=== PATIENT | male | born 1940 | race Caucasian/White ===

== ENCOUNTER 2018-03-18 12:32 | Inpatient (IN) | payer OTHER ==
[~2018-03-18] VITALS: Ht 175.3 cm; Wt 119.0 kg
[~2018-03-18 12:32] MED LIST: ALEVE220 M2 PO; ALLOPURINOL300 MG PO; ATORVASTATIN CA20 MG PO; CELECOXIB200 MG PO; DULOXETINE HCL60 MG PO; FARXIGA10 MG PO; METFORMIN HCL500 MG PO; METOPROLOL TART50 MG PO; NORVASC5 MG PO; OSENI 12.5-151 EACH PO; PANTOPRAZOLE SO40 MG PO; TERAZOSIN HCL10 MG PO; TIZANIDINE HCL2 MG PO; TRAMADOL HCL50 MG PO; TYLENOL EXTRA500 MG PO; ZESTORETIC 20-1 EAC2 PO
[2018-03-18 13:14] LABS: BASOPHIL (%) 0.3 % (0-1); BASOPHIL COUNT 0.1 K/uL (0-0.1); EOSINOPHIL (%) 1.7 % (0-5); EOSINOPHIL COUNT 0.3 K/uL (0-0.3); HEMATOCRIT 30.5 % (38.0-50.0); HEMOGLOBIN 10.5 G/DL (12.5-16.6); IMMATURE GRANULOCYTE (%) 1.4 % (0.0-0.7); LYMPHOCYTE COUNT 0.9 K/uL (1.0-2.8); MCH 32.3 PG (29.0-34.0); MCHC 34.4 G/DL (30.0-36.0); MCV 93.8 FL (86-99); MONOCYTE (%) 5.5 % (3-12); NEUTROPHIL (%) 86.1 % (45-76); NEUTROPHIL COUNT 14.8 K/uL (1.8-6.4); PLATELET COUNT 382 K/uL (156-360); RBC DIS.WIDTH-CV 14.2 % (11.8-14.6); RED BLOOD COUNT 3.25 M/uL (4.00-5.50); WHITE BLOOD COUNT 17.3 K/uL (4.1-10.2)
[2018-03-18 13:22] LABS: CHLORIDE 96 mEq/L (99-109); POTASSIUM 4.7 mEq/L (3.7-5.4); SODIUM 131 mEq/L (136-147)
[2018-03-18 13:23] LABS: GLUCOSE 117 mg/dL (70-99)
[2018-03-18 13:27] LABS: CREATININE 2.3 mg/dL (0.6-1.3); GFR ESTIMATE (CALCULATED) 30 mL/min/ (58.99-99999)
[2018-03-18 13:28] LABS: UREA NITROGEN (BUN) 77 mg/dL (9-23)
[2018-03-18] MEDS ORDERED: ADVIL200 MG PO (15:21)
[2018-03-18] MEDS ORDERED: PROTONIX40 MG PO (15:22)
[2018-03-18] MEDS ORDERED: ASPIR 8181 M1 PO (15:22)
[2018-03-18] MEDS ORDERED: VOLTAREN 1% GE100 GM TP (15:22)
[2018-03-18] MEDS ORDERED: FLOMAX0.4 MG PO (15:23)
[2018-03-18] MEDS ORDERED: BENADRYL25 MG PO (15:23)
[2018-03-18] MEDS ORDERED: SILVADENE,SSD,T50 GM TP (15:23)
[2018-03-18] MEDS ORDERED: TRADJENTA5 MG PO (15:24)
[2018-03-18] MEDS ORDERED: TOUJEO SOL300 UNIT/1 SC (15:24)
[2018-03-18] MEDS ORDERED: ACTOS30 MG PO (15:24)
[2018-03-18] MEDS ORDERED: ODOR FREE GARL1 EAC1 PO (15:24)
[2018-03-18] MEDS ORDERED: APPLE CIDER VI500 MG PO (15:24)
[2018-03-18] MEDS ORDERED: LASIX40 MG PO (15:24)
[2018-03-18 18:41] VITALS: BP 108/49
[2018-03-18 20:12] VITALS: BP 126/53
[2018-03-18 23:52] VITALS: BP 128/63
[2018-03-19 05:11] VITALS: BP 127/58
[2018-03-19 06:19] LABS: BASOPHIL (%) 0.3 % (0-1); BASOPHIL COUNT 0.1 K/uL (0-0.1); EOSINOPHIL (%) 0.7 % (0-5); EOSINOPHIL COUNT 0.1 K/uL (0-0.3); HEMATOCRIT 30.5 % (38.0-50.0); IMMATURE GRANULOCYTE (%) 1.3 % (0.0-0.7); LYMPHOCYTE (%) 4.4 % (15-42); LYMPHOCYTE COUNT 0.7 K/uL (1.0-2.8); MCH 31.2 PG (29.0-34.0); MCHC 32.8 G/DL (30.0-36.0); MONOCYTE (%) 5.3 % (3-12); MONOCYTE COUNT 0.9 K/uL (0-0.8); NEUTROPHIL COUNT 14.7 K/uL (1.8-6.4); PLATELET COUNT 400 K/uL (156-360); RBC DIS.WIDTH-CV 14.1 % (11.8-14.6); RBC DIS.WIDTH-SD 49.5 % (39-53); RED BLOOD COUNT 3.21 M/uL (4.00-5.50); WHITE BLOOD COUNT 16.7 K/uL (4.1-10.2)
[2018-03-19 06:52] LABS: ALBUMIN 2.4 G/DL (3.2-4.8); ALKALINE PHOSPHATASE 73 IU/L (3-129); ALT (GPT) 14 IU/L (3-49); AST (GOT) 15 IU/L (2-34); CHLORIDE 97 MEQ/L (99-109); CREATININE 2.1 MG/DL (0.6-1.3); GFR ESTIMATE (CALCULATED) 33 mL/min/ (58.99-99999); HDL CHOLESTEROL 19 MG/DL (Desirable>=40); LDL CHOLESTEROL 40 mg/dL (Desirable<100); NON-HDL CHOLESTEROL 60 mg/dL (Desirable<160); POTASSIUM 4.4 MEQ/L (3.7-5.4); SODIUM 133 MEQ/L (136-147); TOTAL BILIRUBIN 0.4 MG/DL (0.0-1.0); TOTAL CHOLESTEROL 79 mg/dL (Desirable<200); TOTAL PROTEIN 5.6 G/DL (6.4-8.3); TRIGLYCERIDES 100 MG/DL (Normal: <150); UREA NITROGEN (BUN) 68 mg/dL (9-23)
[2018-03-19 06:56] LABS: GLUCOSE 219 mg/dL (70-99)
[2018-03-19 07:04] LABS: VANCOMYCIN, TROUGH 8.9 MCG/ML (10-20)
[2018-03-19 07:54] VITALS: BP 113/65
[2018-03-19 23:07] VITALS: BP 118/60
[2018-03-20 07:08] LABS: BASOPHIL (%) 0.3 % (0-1); BASOPHIL COUNT 0.1 K/uL (0-0.1); EOSINOPHIL (%) 1.5 % (0-5); EOSINOPHIL COUNT 0.3 K/uL (0-0.3); HEMATOCRIT 31.5 % (38.0-50.0); HEMOGLOBIN 10.3 G/DL (12.5-16.6); IMMATURE GRANULOCYTE (%) 0.9 % (0.0-0.7); LYMPHOCYTE (%) 7.4 % (15-42); LYMPHOCYTE COUNT 1.3 K/uL (1.0-2.8); MCH 31.5 PG (29.0-34.0); MCHC 32.7 G/DL (30.0-36.0); MCV 96.3 FL (86-99); MONOCYTE (%) 7.8 % (3-12); MONOCYTE COUNT 1.4 K/uL (0-0.8); NEUTROPHIL (%) 82.1 % (45-76); NEUTROPHIL COUNT 14.6 K/uL (1.8-6.4); PLATELET COUNT 435 K/uL (156-360); RBC DIS.WIDTH-CV 14.3 % (11.8-14.6); RBC DIS.WIDTH-SD 50.4 % (39-53); RED BLOOD COUNT 3.27 M/uL (4.00-5.50); WHITE BLOOD COUNT 17.8 K/uL (4.1-10.2)
[2018-03-20 07:38] LABS: CHLORIDE 100 MEQ/L (99-109); GFR ESTIMATE (CALCULATED) 35 mL/min/ (58.99-99999); POTASSIUM 4.7 MEQ/L (3.7-5.4); SODIUM 135 MEQ/L (136-147); UREA NITROGEN (BUN) 59 mg/dL (9-23)
[2018-03-20 07:39] LABS: GLUCOSE 70 mg/dL (70-99)
[2018-03-20 08:47] VITALS: BP 113/51
[2018-03-20 23:54] VITALS: BP 144/67
[2018-03-21 07:05] LABS: BASOPHIL (%) 0.4 % (0-1); BASOPHIL COUNT 0.1 K/uL (0-0.1); EOSINOPHIL (%) 1.9 % (0-5); EOSINOPHIL COUNT 0.3 K/uL (0-0.3); HEMATOCRIT 29.2 % (38.0-50.0); HEMOGLOBIN 9.6 G/DL (12.5-16.6); IMMATURE GRANULOCYTE (%) 0.8 % (0.0-0.7); LYMPHOCYTE (%) 7.1 % (15-42); LYMPHOCYTE COUNT 1.2 K/uL (1.0-2.8); MCH 31.5 PG (29.0-34.0); MCHC 32.9 G/DL (30.0-36.0); MCV 95.7 FL (86-99); MONOCYTE (%) 7.9 % (3-12); MONOCYTE COUNT 1.3 K/uL (0-0.8); NEUTROPHIL (%) 81.9 % (45-76); NEUTROPHIL COUNT 13.7 K/uL (1.8-6.4); PLATELET COUNT 405 K/uL (156-360); RBC DIS.WIDTH-CV 14.2 % (11.8-14.6); RBC DIS.WIDTH-SD 50.3 % (39-53); RED BLOOD COUNT 3.05 M/uL (4.00-5.50); WHITE BLOOD COUNT 16.7 K/uL (4.1-10.2)
[2018-03-21 07:07] LABS: INTER. NORMALIZED RATIO 1.1
[2018-03-21 07:10] LABS: PTT 27.5 SEC (25-37)
[2018-03-21 07:18] VITALS: BP 134/62
[2018-03-21 07:34] LABS: CHLORIDE 102 MEQ/L (99-109); CREATININE 1.7 MG/DL (0.6-1.3); GFR ESTIMATE (CALCULATED) 42 mL/min/ (58.99-99999); POTASSIUM 4.6 MEQ/L (3.7-5.4); SODIUM 136 MEQ/L (136-147); UREA NITROGEN (BUN) 55 mg/dL (9-23)
[2018-03-21 07:36] LABS: GLUCOSE 111 mg/dL (70-99)
[2018-03-21 09:27] LABS: HEMOGLOBIN A1c (GLYCOHEMOGLOB) 9.9 % (Below 5.7)
[2018-03-21 17:41] VITALS: BP 138/76
[2018-03-21 23:58] VITALS: BP 118/72
[2018-03-22 06:12] LABS: CHLORIDE 101 MEQ/L (99-109); CREATININE 1.7 MG/DL (0.6-1.3); GFR ESTIMATE (CALCULATED) 42 mL/min/ (58.99-99999); GLUCOSE 154 mg/dL (70-99); POTASSIUM 4.9 MEQ/L (3.7-5.4); SODIUM 134 MEQ/L (136-147); UREA NITROGEN (BUN) 43 mg/dL (9-23)
[2018-03-22 08:01] VITALS: BP 122/58
[2018-03-22 15:51] VITALS: BP 143/59
[2018-03-22 22:36] VITALS: BP 122/78
[2018-03-22 23:39] VITALS: BP 117/56
[2018-03-23 04:25] VITALS: BP 122/57
[2018-03-23 06:46] LABS: CHLORIDE 102 MEQ/L (99-109); CREATININE 2.1 MG/DL (0.6-1.3); GFR ESTIMATE (CALCULATED) 33 mL/min/ (58.99-99999); GLUCOSE 192 mg/dL (70-99); SODIUM 134 MEQ/L (136-147); UREA NITROGEN (BUN) 49 mg/dL (9-23)
[2018-03-23 08:25] VITALS: BP 128/68
[2018-03-23 11:46] VITALS: BP 134/76
[2018-03-23 15:59] VITALS: BP 122/70
[2018-03-23 19:28] VITALS: BP 127/60
[2018-03-24 00:05] VITALS: BP 127/58
[2018-03-24 05:37] LABS: BASOPHIL (%) 0.7 % (0-1); BASOPHIL COUNT 0.1 K/uL (0-0.1); EOSINOPHIL (%) 6.8 % (0-5); EOSINOPHIL COUNT 0.7 K/uL (0-0.3); HEMATOCRIT 28.6 % (38.0-50.0); HEMOGLOBIN 9.1 G/DL (12.5-16.6); IMMATURE GRANULOCYTE (%) 0.9 % (0.0-0.7); LYMPHOCYTE (%) 13.3 % (15-42); LYMPHOCYTE COUNT 1.4 K/uL (1.0-2.8); MCH 31.2 PG (29.0-34.0); MCHC 31.8 G/DL (30.0-36.0); MCV 97.9 FL (86-99); MONOCYTE (%) 7.1 % (3-12); MONOCYTE COUNT 0.8 K/uL (0-0.8); NEUTROPHIL (%) 71.2 % (45-76); NEUTROPHIL COUNT 7.7 K/uL (1.8-6.4); PLATELET COUNT 353 K/uL (156-360); RBC DIS.WIDTH-SD 50.5 % (39-53); RED BLOOD COUNT 2.92 M/uL (4.00-5.50); WHITE BLOOD COUNT 10.8 K/uL (4.1-10.2)
[2018-03-24 06:05] LABS: CHLORIDE 101 MEQ/L (99-109); GFR ESTIMATE (CALCULATED) 35 mL/min/ (58.99-99999); GLUCOSE 153 mg/dL (70-99); SODIUM 133 MEQ/L (136-147); UREA NITROGEN (BUN) 51 mg/dL (9-23)
[2018-03-24 08:00] VITALS: BP 149/73
[2018-03-24 17:00] VITALS: BP 140/78
[2018-03-25 00:49] VITALS: BP 127/58
[2018-03-25 04:49] VITALS: BP 150/72
[2018-03-25 07:01] LABS: CHLORIDE 99 MEQ/L (99-109); CREATININE 1.7 MG/DL (0.6-1.3); GFR ESTIMATE (CALCULATED) 42 mL/min/ (58.99-99999); GLUCOSE 223 mg/dL (70-99); SODIUM 132 MEQ/L (136-147); UREA NITROGEN (BUN) 49 mg/dL (9-23)
[2018-03-25 07:42] VITALS: BP 120/60
[2018-03-25 16:24] VITALS: BP 128/70
[2018-03-25 23:28] VITALS: BP 121/56
[2018-03-26 07:32] VITALS: BP 164/83
[2018-03-26 08:10] VITALS: BP 100/54
[2018-03-26 16:13] VITALS: BP 94/53
[2018-03-26 23:45] VITALS: BP 108/56
[2018-03-27 06:58] LABS: CREATININE 1.6 MG/DL (0.6-1.3)
[2018-03-27 09:24] VITALS: BP 104/50
[2018-03-27 15:35] VITALS: BP 110/64
[2018-03-28 02:11] VITALS: BP 112/60
[2018-03-28 07:56] VITALS: BP 108/62
[2018-03-28 15:49] VITALS: BP 106/64
[2018-03-28 23:57] VITALS: BP 110/66
[2018-03-29 08:27] VITALS: BP 150/70
[2018-03-29 12:30] VITALS: BP 150/60
[2018-03-29 15:49] VITALS: BP 148/67
[2018-03-29 23:04] VITALS: BP 128/69
[2018-03-30 08:11] VITALS: BP 142/70
[2018-03-30 08:57] LABS: HEMATOCRIT 23.7 % (38.0-50.0); HEMOGLOBIN 7.5 G/DL (12.5-16.6); MCH 30.6 PG (29.0-34.0); MCHC 31.6 G/DL (30.0-36.0); MCV 96.7 FL (86-99); PLATELET COUNT 297 K/uL (156-360); RBC DIS.WIDTH-CV 14.8 % (11.8-14.6); RBC DIS.WIDTH-SD 51.6 % (39-53); RED BLOOD COUNT 2.45 M/uL (4.00-5.50); WHITE BLOOD COUNT 12.1 K/uL (4.1-10.2)
[2018-03-30 09:13] LABS: CHLORIDE 99 MEQ/L (99-109); POTASSIUM 4.8 MEQ/L (3.7-5.4); SODIUM 135 MEQ/L (136-147)
[2018-03-30 09:20] LABS: GFR ESTIMATE (CALCULATED) 33 mL/min/ (58.99-99999); GLUCOSE 200 mg/dL (70-99); UREA NITROGEN (BUN) 56 mg/dL (9-23)
[2018-03-30 09:21] LABS: CREATININE 2.1 MG/DL (0.6-1.3)
[2018-03-30 16:55] VITALS: BP 138/60
[2018-03-30 23:15] VITALS: BP 128/80
[2018-03-31] VITALS (12 sets, daily range): BP systolic 86–130; BP diastolic 50–76
[2018-03-31 06:46] LABS: BASOPHIL (%) 0.5 % (0-1); BASOPHIL COUNT 0.1 K/uL (0-0.1); EOSINOPHIL (%) 0.9 % (0-5); EOSINOPHIL COUNT 0.1 K/uL (0-0.3); HEMATOCRIT 23.5 % (38.0-50.0); HEMOGLOBIN 7.4 G/DL (12.5-16.6); LYMPHOCYTE (%) 9.5 % (15-42); LYMPHOCYTE COUNT 1.3 K/uL (1.0-2.8); MCH 30.7 PG (29.0-34.0); MCHC 31.5 G/DL (30.0-36.0); MCV 97.5 FL (86-99); MONOCYTE (%) 6.6 % (3-12); MONOCYTE COUNT 0.9 K/uL (0-0.8); NEUTROPHIL (%) 81.5 % (45-76); NEUTROPHIL COUNT 10.9 K/uL (1.8-6.4); PLATELET COUNT 328 K/uL (156-360); RBC DIS.WIDTH-CV 15.2 % (11.8-14.6); RBC DIS.WIDTH-SD 52.1 % (39-53); RED BLOOD COUNT 2.41 M/uL (4.00-5.50); WHITE BLOOD COUNT 13.4 K/uL (4.1-10.2)
[2018-03-31 07:07] LABS: CHLORIDE 98 MEQ/L (99-109); CREATININE 2.3 MG/DL (0.6-1.3); GFR ESTIMATE (CALCULATED) 30 mL/min/ (58.99-99999); GLUCOSE 164 mg/dL (70-99); POTASSIUM 4.5 MEQ/L (3.7-5.4); SODIUM 132 MEQ/L (136-147); UREA NITROGEN (BUN) 59 mg/dL (9-23)
[2018-04-01 07:05] LABS: BASOPHIL (%) 0.5 % (0-1); BASOPHIL COUNT 0.1 K/uL (0-0.1); EOSINOPHIL (%) 1.1 % (0-5); EOSINOPHIL COUNT 0.2 K/uL (0-0.3); HEMATOCRIT 26.7 % (38.0-50.0); HEMOGLOBIN 8.7 G/DL (12.5-16.6); IMMATURE GRANULOCYTE (%) 0.7 % (0.0-0.7); LYMPHOCYTE (%) 9.4 % (15-42); LYMPHOCYTE COUNT 1.3 K/uL (1.0-2.8); MCH 31.2 PG (29.0-34.0); MCHC 32.6 G/DL (30.0-36.0); MCV 95.7 FL (86-99); MONOCYTE (%) 8.7 % (3-12); MONOCYTE COUNT 1.2 K/uL (0-0.8); NEUTROPHIL (%) 79.6 % (45-76); NEUTROPHIL COUNT 10.8 K/uL (1.8-6.4); NRBC (%) 0.1 /100 WBC (0-0); PLATELET COUNT 311 K/uL (156-360); RBC DIS.WIDTH-CV 16.5 % (11.8-14.6); RBC DIS.WIDTH-SD 56.4 % (39-53); RED BLOOD COUNT 2.79 M/uL (4.00-5.50); WHITE BLOOD COUNT 13.6 K/uL (4.1-10.2)
[2018-04-01 07:27] LABS: CHLORIDE 96 MEQ/L (99-109); CREATININE 2.6 MG/DL (0.6-1.3); GFR ESTIMATE (CALCULATED) 26 mL/min/ (58.99-99999); GLUCOSE 154 mg/dL (70-99); POTASSIUM 4.8 MEQ/L (3.7-5.4); SODIUM 131 MEQ/L (136-147); UREA NITROGEN (BUN) 64 mg/dL (9-23)
[2018-04-01 07:48] VITALS: BP 136/68
[2018-04-01 16:19] VITALS: BP 140/66
[2018-04-02 00:38] VITALS: BP 134/78
[2018-04-02 04:55] VITALS: BP 125/84
[2018-04-02 06:53] LABS: BASOPHIL (%) 0.7 % (0-1); BASOPHIL COUNT 0.1 K/uL (0-0.1); EOSINOPHIL (%) 1.9 % (0-5); EOSINOPHIL COUNT 0.2 K/uL (0-0.3); HEMATOCRIT 28.3 % (38.0-50.0); HEMOGLOBIN 9.2 G/DL (12.5-16.6); IMMATURE GRANULOCYTE (%) 0.7 % (0.0-0.7); LYMPHOCYTE (%) 10.6 % (15-42); LYMPHOCYTE COUNT 1.3 K/uL (1.0-2.8); MCH 31.3 PG (29.0-34.0); MCHC 32.5 G/DL (30.0-36.0); MCV 96.3 FL (86-99); MONOCYTE (%) 6.2 % (3-12); MONOCYTE COUNT 0.8 K/uL (0-0.8); NEUTROPHIL (%) 79.9 % (45-76); NEUTROPHIL COUNT 9.8 K/uL (1.8-6.4); PLATELET COUNT 346 K/uL (156-360); RBC DIS.WIDTH-CV 16.9 % (11.8-14.6); RBC DIS.WIDTH-SD 57.2 % (39-53); RED BLOOD COUNT 2.94 M/uL (4.00-5.50); WHITE BLOOD COUNT 12.2 K/uL (4.1-10.2)
[2018-04-02 07:29] LABS: CHLORIDE 95 MEQ/L (99-109); GFR ESTIMATE (CALCULATED) 21 mL/min/ (58.99-99999); GLUCOSE 139 mg/dL (70-99); SODIUM 130 MEQ/L (136-147); UREA NITROGEN (BUN) 69 mg/dL (9-23)
[2018-04-02 07:39] LABS: CREATININE 3.1 MG/DL (0.6-1.3)
[2018-04-02 08:50] VITALS: BP 120/56
[2018-04-02 23:27] VITALS: BP 138/74
[2018-04-03 07:47] LABS: BASOPHIL (%) 0.6 % (0-1); BASOPHIL COUNT 0.1 K/uL (0-0.1); EOSINOPHIL (%) 1.1 % (0-5); EOSINOPHIL COUNT 0.1 K/uL (0-0.3); HEMATOCRIT 29.9 % (38.0-50.0); HEMOGLOBIN 9.5 G/DL (12.5-16.6); IMMATURE GRANULOCYTE (%) 0.9 % (0.0-0.7); LYMPHOCYTE (%) 7.8 % (15-42); MCH 30.9 PG (29.0-34.0); MCHC 31.8 G/DL (30.0-36.0); MCV 97.4 FL (86-99); MONOCYTE (%) 6.5 % (3-12); MONOCYTE COUNT 0.8 K/uL (0-0.8); NEUTROPHIL (%) 83.1 % (45-76); NEUTROPHIL COUNT 10.4 K/uL (1.8-6.4); PLATELET COUNT 396 K/uL (156-360); RBC DIS.WIDTH-SD 57.8 % (39-53); RED BLOOD COUNT 3.07 M/uL (4.00-5.50); WHITE BLOOD COUNT 12.6 K/uL (4.1-10.2)
[2018-04-03 08:05] LABS: CHLORIDE 94 MEQ/L (99-109); CREATININE 3.5 MG/DL (0.6-1.3); GFR ESTIMATE (CALCULATED) 18 mL/min/ (58.99-99999); POTASSIUM 5.1 MEQ/L (3.7-5.4); SODIUM 128 MEQ/L (136-147); UREA NITROGEN (BUN) 69 mg/dL (9-23)
[2018-04-03 08:16] LABS: GLUCOSE 97 mg/dL (70-99)
[2018-04-03 09:46] VITALS: BP 121/69
[2018-04-03 16:08] VITALS: BP 121/83
[2018-04-04 00:29] VITALS: BP 160/78
[2018-04-04 06:01] LABS: BASOPHIL (%) 0.3 % (0-1); EOSINOPHIL (%) 0.1 % (0-5); HEMATOCRIT 27.6 % (38.0-50.0); HEMOGLOBIN 8.7 G/DL (12.5-16.6); IMMATURE GRANULOCYTE (%) 0.8 % (0.0-0.7); LYMPHOCYTE COUNT 0.9 K/uL (1.0-2.8); MCH 30.6 PG (29.0-34.0); MCHC 31.5 G/DL (30.0-36.0); MCV 97.2 FL (86-99); MONOCYTE (%) 4.7 % (3-12); MONOCYTE COUNT 0.5 K/uL (0-0.8); NEUTROPHIL (%) 86.1 % (45-76); PLATELET COUNT 382 K/uL (156-360); RBC DIS.WIDTH-SD 57.6 % (39-53); RED BLOOD COUNT 2.84 M/uL (4.00-5.50); WHITE BLOOD COUNT 11.5 K/uL (4.1-10.2)
[2018-04-04 07:14] LABS: CHLORIDE 94 MEQ/L (99-109); CREATININE 3.7 MG/DL (0.6-1.3); GFR ESTIMATE (CALCULATED) 17 mL/min/ (58.99-99999); GLUCOSE 78 mg/dL (70-99); POTASSIUM 5.5 MEQ/L (3.7-5.4); SODIUM 126 MEQ/L (136-147); UREA NITROGEN (BUN) 75 mg/dL (9-23)
[2018-04-04 08:06] VITALS: BP 142/72
[2018-04-04 23:24] VITALS: BP 140/70
[2018-04-05 05:27] LABS: BASOPHIL (%) 0.2 % (0-1); EOSINOPHIL (%) 0 % (0-5); HEMATOCRIT 29.4 % (38.0-50.0); HEMOGLOBIN 9.5 G/DL (12.5-16.6); IMMATURE GRANULOCYTE (%) 0.9 % (0.0-0.7); LYMPHOCYTE (%) 5.7 % (15-42); LYMPHOCYTE COUNT 0.7 K/uL (1.0-2.8); MCH 30.9 PG (29.0-34.0); MCHC 32.3 G/DL (30.0-36.0); MCV 95.8 FL (86-99); MONOCYTE COUNT 0.5 K/uL (0-0.8); NEUTROPHIL (%) 89.2 % (45-76); NEUTROPHIL COUNT 10.9 K/uL (1.8-6.4); NRBC (%) 0.2 /100 WBC (0-0); PLATELET COUNT 375 K/uL (156-360); RBC DIS.WIDTH-CV 17.1 % (11.8-14.6); RBC DIS.WIDTH-SD 58.1 % (39-53); RED BLOOD COUNT 3.07 M/uL (4.00-5.50); WHITE BLOOD COUNT 12.2 K/uL (4.1-10.2)
[2018-04-05 05:45] LABS: CHLORIDE 92 MEQ/L (99-109); POTASSIUM 5.6 MEQ/L (3.7-5.4); SODIUM 124 MEQ/L (136-147)
[2018-04-05 05:54] LABS: CREATININE 3.6 MG/DL (0.6-1.3); GFR ESTIMATE (CALCULATED) 18 mL/min/ (58.99-99999); GLUCOSE 108 mg/dL (70-99); UREA NITROGEN (BUN) 84 mg/dL (9-23)
[2018-04-05 11:45] LABS: PCO2 37 mm Hg (35-45); PO2 78 mm Hg (80-100); pH 7.23 (7.35-7.45)
[2018-04-05 11:47] LABS: BASE EXCESS -11.2 mEq/L (-3 to +3); BICARBONATE 15.5 mEq/L (22-26); COMMENTS - BLOOD GASES C+; DEVICE NC; O2 FLOW 5 L/MIN; SITE RR; TOTAL RESP RATE 26 resp/min
[2018-04-05 11:48] LABS: CARBOXY HGB 4.5 % (0-5); METHEMOGLOBIN 1.6 % (0-1.5); O2 SATURATION (CALCULATED) 99.6 % (95-99)
[2018-04-05 12:08] LABS: HEMATOCRIT 28.5 % (38.0-50.0); HEMOGLOBIN 9.3 G/DL (12.5-16.6); MCH 31.8 PG (29.0-34.0); MCHC 32.6 G/DL (30.0-36.0); MCV 97.6 FL (86-99); PLATELET COUNT 406 K/uL (156-360); RBC DIS.WIDTH-CV 17.2 % (11.8-14.6); RBC DIS.WIDTH-SD 60.8 % (39-53); RED BLOOD COUNT 2.92 M/uL (4.00-5.50); WHITE BLOOD COUNT 13.9 K/uL (4.1-10.2)
[2018-04-05 12:20] LABS: CHLORIDE 93 mEq/L (99-109); POTASSIUM 5.7 mEq/L (3.7-5.4); SODIUM 125 mEq/L (136-147)
[2018-04-05 12:23] LABS: GLUCOSE 142 mg/dL (70-99); TOTAL PROTEIN 6.5 g/dL (6.4-8.3)
[2018-04-05 12:24] LABS: TOTAL BILIRUBIN 0.5 mg/dL (0.0-1.0)
[2018-04-05 12:26] LABS: ALKALINE PHOSPHATASE 80 IU/L (3-129); CREATININE 3.7 mg/dL (0.6-1.3); GFR ESTIMATE (CALCULATED) 17 mL/min/ (58.99-99999)
[2018-04-05 12:27] LABS: UREA NITROGEN (BUN) 92 mg/dL (9-23)
[2018-04-05 12:28] LABS: AST (GOT) 33 IU/L (2-34)
[2018-04-05 12:29] LABS: ALT (GPT) 27 IU/L (3-49)
[2018-04-05 12:31] LABS: TROP-I INTERPRETATION POSITIVE
[2018-04-05 12:59] LABS: APPEARANCE CLOUDY ((CLEAR)); BILIRUBIN NEGATIVE; BLOOD NEGATIVE; COLOR YELLOW ((YELLOW)); GLUCOSE (STRIP) NEGATIVE; KETONES NEGATIVE; LEUKOCYTES NEGATIVE; NITRITE NEGATIVE; PROTEIN (STRIP) 30; SPECIFIC GRAVITY 1.016 (1.000-1.030)
[2018-04-05 13:14] LABS: BACTERIA 1+ /HPF; EPITHELIAL CELLS 1+ /HPF; HYALINE CASTS 0-5 /LPF; MUCUS NONE SEEN /LPF; RED BLOOD CELLS 0-5 /HPF (0-5); UCUL ADDED? YES
[2018-04-05 14:46] LABS: HEPATITIS B SURFACE ANTIBODY Nonreactive; HEPATITIS B SURFACE ANTIGEN Nonreactive; HEPATITIS C ANTIBODY Nonreactive
[2018-04-05 14:47] LABS: ANTI-HEPATITIS B CORE (TOTAL) Nonreactive
[2018-04-05 14:55] VITALS: BP 141/62
[2018-04-05 15:30] LABS: TROP-I INTERPRETATION POSITIVE; TROPONIN-I 1.88 ng/mL (0.0-0.30)
[2018-04-05 20:50] VITALS: BP 131/64
[2018-04-05 23:58] VITALS: BP 109/59
[2018-04-06 03:55] VITALS: BP 134/62
[2018-04-06 05:50] LABS: BASOPHIL (%) 0.1 % (0-1); CHLORIDE 90 MEQ/L (99-109); CREATININE 3.1 MG/DL (0.6-1.3); EOSINOPHIL (%) 0 % (0-5); GFR ESTIMATE (CALCULATED) 21 mL/min/ (58.99-99999); GLUCOSE 108 mg/dL (70-99); HEMATOCRIT 25.7 % (38.0-50.0); HEMOGLOBIN 8.3 G/DL (12.5-16.6); IMMATURE GRANULOCYTE (%) 0.5 % (0.0-0.7); LYMPHOCYTE (%) 7.4 % (15-42); LYMPHOCYTE COUNT 0.9 K/uL (1.0-2.8); MCH 30.4 PG (29.0-34.0); MCHC 32.3 G/DL (30.0-36.0); MCV 94.1 FL (86-99); MONOCYTE (%) 7.8 % (3-12); NEUTROPHIL (%) 84.2 % (45-76); NEUTROPHIL COUNT 10.3 K/uL (1.8-6.4); PLATELET COUNT 441 K/uL (156-360); POTASSIUM 4.6 MEQ/L (3.7-5.4); RBC DIS.WIDTH-CV 17.3 % (11.8-14.6); RBC DIS.WIDTH-SD 57.3 % (39-53); RED BLOOD COUNT 2.73 M/uL (4.00-5.50); SODIUM 130 MEQ/L (136-147); UREA NITROGEN (BUN) 67 mg/dL (9-23); WHITE BLOOD COUNT 12.2 K/uL (4.1-10.2)
[2018-04-06 07:06] VITALS: BP 101/69
[2018-04-06 12:30] VITALS: BP 143/76
[2018-04-06 15:46] VITALS: BP 138/86
[2018-04-06 19:53] VITALS: BP 146/67
[2018-04-07 00:50] VITALS: BP 118/74
[2018-04-07 03:45] VITALS: BP 138/77
[2018-04-07 04:58] LABS: BASOPHIL (%) 0.1 % (0-1); EOSINOPHIL (%) 0.1 % (0-5); HEMATOCRIT 26.2 % (38.0-50.0); HEMOGLOBIN 8.3 G/DL (12.5-16.6); LYMPHOCYTE (%) 7.6 % (15-42); LYMPHOCYTE COUNT 0.8 K/uL (1.0-2.8); MCH 30.1 PG (29.0-34.0); MCHC 31.7 G/DL (30.0-36.0); MCV 94.9 FL (86-99); MONOCYTE (%) 9.8 % (3-12); NEUTROPHIL (%) 81.4 % (45-76); NEUTROPHIL COUNT 8.6 K/uL (1.8-6.4); PLATELET COUNT 353 K/uL (156-360); RBC DIS.WIDTH-CV 17.5 % (11.8-14.6); RBC DIS.WIDTH-SD 58.4 % (39-53); RED BLOOD COUNT 2.76 M/uL (4.00-5.50); WHITE BLOOD COUNT 10.6 K/uL (4.1-10.2)
[2018-04-07 05:30] LABS: CHLORIDE 89 MEQ/L (99-109); CREATININE 2.9 MG/DL (0.6-1.3); GFR ESTIMATE (CALCULATED) 23 mL/min/ (58.99-99999); POTASSIUM 3.8 MEQ/L (3.7-5.4); SODIUM 129 MEQ/L (136-147); UREA NITROGEN (BUN) 46 mg/dL (9-23)
[2018-04-07 05:37] LABS: GLUCOSE 170 mg/dL (70-99)
[2018-04-07 07:16] VITALS: BP 111/62
[2018-04-07 19:44] VITALS: BP 118/53
[2018-04-08 00:21] VITALS: BP 125/57
[2018-04-08 04:55] VITALS: BP 131/58
[2018-04-08 09:17] LABS: BASOPHIL (%) 0.1 % (0-1); EOSINOPHIL (%) 0.7 % (0-5); EOSINOPHIL COUNT 0.1 K/uL (0-0.3); HEMATOCRIT 28.9 % (38.0-50.0); HEMOGLOBIN 9.2 G/DL (12.5-16.6); IMMATURE GRANULOCYTE (%) 1.3 % (0.0-0.7); LYMPHOCYTE (%) 8.7 % (15-42); LYMPHOCYTE COUNT 0.9 K/uL (1.0-2.8); MCH 30.8 PG (29.0-34.0); MCHC 31.8 G/DL (30.0-36.0); MCV 96.7 FL (86-99); MONOCYTE (%) 10.2 % (3-12); MONOCYTE COUNT 1.1 K/uL (0-0.8); NEUTROPHIL COUNT 8.5 K/uL (1.8-6.4); NRBC (%) 0.2 /100 WBC (0-0); PLATELET COUNT 356 K/uL (156-360); RBC DIS.WIDTH-CV 17.8 % (11.8-14.6); RBC DIS.WIDTH-SD 61.1 % (39-53); RED BLOOD COUNT 2.99 M/uL (4.00-5.50); WHITE BLOOD COUNT 10.8 K/uL (4.1-10.2)
[2018-04-08 09:20] LABS: CHLORIDE 94 MEQ/L (99-109); MAGNESIUM 2.2 mg/dl (1.3-2.7); POTASSIUM 3.5 MEQ/L (3.7-5.4); SODIUM 133 MEQ/L (136-147)
[2018-04-08 09:26] LABS: GFR ESTIMATE (CALCULATED) 37 mL/min/ (58.99-99999); GLUCOSE 132 mg/dL (70-99); PHOSPHORUS 3.1 mg/dL (2.5-4.9); UREA NITROGEN (BUN) 34 mg/dL (9-23)
[2018-04-08 09:28] LABS: CREATININE 1.9 MG/DL (0.6-1.3)
[2018-04-08 11:50] VITALS: BP 141/57
[2018-04-08 16:21] VITALS: BP 119/52
[2018-04-08 21:00] VITALS: BP 127/83
[2018-04-09] VITALS: BP 141/74
[2018-04-09 05:30] VITALS: BP 127/45
[2018-04-09 05:33] LABS: BASOPHIL (%) 0.2 % (0-1); EOSINOPHIL (%) 1.4 % (0-5); EOSINOPHIL COUNT 0.1 K/uL (0-0.3); HEMATOCRIT 28.2 % (38.0-50.0); HEMOGLOBIN 9.1 G/DL (12.5-16.6); LYMPHOCYTE (%) 11.7 % (15-42); LYMPHOCYTE COUNT 1.1 K/uL (1.0-2.8); MCHC 32.3 G/DL (30.0-36.0); MCV 95.9 FL (86-99); MONOCYTE COUNT 0.9 K/uL (0-0.8); NEUTROPHIL (%) 75.7 % (45-76); PLATELET COUNT 299 K/uL (156-360); RBC DIS.WIDTH-CV 17.8 % (11.8-14.6); RBC DIS.WIDTH-SD 59.9 % (39-53); RED BLOOD COUNT 2.94 M/uL (4.00-5.50); WHITE BLOOD COUNT 9.2 K/uL (4.1-10.2)
[2018-04-09 05:55] LABS: CHLORIDE 95 MEQ/L (99-109); CREATININE 1.8 MG/DL (0.6-1.3); GFR ESTIMATE (CALCULATED) 39 mL/min/ (58.99-99999); GLUCOSE 174 mg/dL (70-99); MAGNESIUM 2.2 mg/dl (1.3-2.7); PHOSPHORUS 2.4 mg/dL (2.5-4.9); POTASSIUM 3.4 MEQ/L (3.7-5.4); SODIUM 134 MEQ/L (136-147); UREA NITROGEN (BUN) 42 mg/dL (9-23)
[2018-04-09 12:12] VITALS: BP 153/64
[2018-04-09 17:11] VITALS: BP 140/81
[2018-04-09 20:06] VITALS: BP 125/44
[2018-04-09 21:10] LABS: FACTOR Xa INHIBITION (LMWH) 0.09 IU/mL
[2018-04-10] VITALS (7 sets, daily range): BP systolic 117–154; BP diastolic 58–87
[2018-04-10 07:09] LABS: ALBUMIN 2.6 G/DL (3.2-4.8); CHLORIDE 100 MEQ/L (99-109); GFR ESTIMATE (CALCULATED) > 59 mL/min/ (58.99-99999); GLUCOSE 144 mg/dL (70-99); PHOSPHORUS 1.8 mg/dL (2.5-4.9); POTASSIUM 3.9 MEQ/L (3.7-5.4); SODIUM 136 MEQ/L (136-147); UREA NITROGEN (BUN) 25 mg/dL (9-23)
[2018-04-10 07:14] LABS: CREATININE 1.2 MG/DL (0.6-1.3)
[2018-04-11] VITALS (7 sets, daily range): BP systolic 98–131; BP diastolic 58–77
[2018-04-11 09:15] LABS: ALBUMIN 2.8 G/DL (3.2-4.8); CHLORIDE 103 MEQ/L (99-109); CREATININE 1.2 MG/DL (0.6-1.3); GFR ESTIMATE (CALCULATED) > 59 mL/min/ (58.99-99999); GLUCOSE 155 mg/dL (70-99); PHOSPHORUS 1.8 mg/dL (2.5-4.9); POTASSIUM 3.7 MEQ/L (3.7-5.4); SODIUM 140 MEQ/L (136-147); UREA NITROGEN (BUN) 28 mg/dL (9-23)
[2018-04-12 06:48] LABS: BASOPHIL (%) 0.4 % (0-1); EOSINOPHIL (%) 1.8 % (0-5); EOSINOPHIL COUNT 0.2 K/uL (0-0.3); HEMATOCRIT 29.7 % (38.0-50.0); HEMOGLOBIN 9.2 G/DL (12.5-16.6); IMMATURE GRANULOCYTE (%) 0.7 % (0.0-0.7); LYMPHOCYTE (%) 10.8 % (15-42); LYMPHOCYTE COUNT 1.1 K/uL (1.0-2.8); MCH 30.9 PG (29.0-34.0); MCV 99.7 FL (86-99); MONOCYTE (%) 9.3 % (3-12); MONOCYTE COUNT 0.9 K/uL (0-0.8); NEUTROPHIL COUNT 7.7 K/uL (1.8-6.4); PLATELET COUNT 236 K/uL (156-360); RBC DIS.WIDTH-CV 19.4 % (11.8-14.6); RBC DIS.WIDTH-SD 69.6 % (39-53); RED BLOOD COUNT 2.98 M/uL (4.00-5.50); WHITE BLOOD COUNT 10.1 K/uL (4.1-10.2)
[2018-04-12 07:12] LABS: ALBUMIN 2.8 G/DL (3.2-4.8); CHLORIDE 101 MEQ/L (99-109); CREATININE 1.1 MG/DL (0.6-1.3); GFR ESTIMATE (CALCULATED) > 59 mL/min/ (58.99-99999); PHOSPHORUS 2.1 mg/dL (2.5-4.9); POTASSIUM 3.9 MEQ/L (3.7-5.4); SODIUM 139 MEQ/L (136-147); UREA NITROGEN (BUN) 28 mg/dL (9-23)
[2018-04-12 07:13] LABS: GLUCOSE 109 mg/dL (70-99)
[2018-04-12 08:27] VITALS: BP 110/54
[2018-04-12 19:33] VITALS: BP 110/64
[2018-04-12 23:51] VITALS: BP 118/64
[2018-04-13 06:48] LABS: BASOPHIL (%) 0.3 % (0-1); EOSINOPHIL (%) 1.5 % (0-5); EOSINOPHIL COUNT 0.1 K/uL (0-0.3); HEMATOCRIT 32.4 % (38.0-50.0); IMMATURE GRANULOCYTE (%) 0.7 % (0.0-0.7); MCH 31.2 PG (29.0-34.0); MCHC 30.9 G/DL (30.0-36.0); MCV 100.9 FL (86-99); MONOCYTE (%) 8.9 % (3-12); MONOCYTE COUNT 0.8 K/uL (0-0.8); NEUTROPHIL (%) 77.6 % (45-76); PLATELET COUNT 211 K/uL (156-360); RBC DIS.WIDTH-CV 19.7 % (11.8-14.6); RED BLOOD COUNT 3.21 M/uL (4.00-5.50); WHITE BLOOD COUNT 9.1 K/uL (4.1-10.2)
[2018-04-13 07:10] LABS: CHLORIDE 101 MEQ/L (99-109); GFR ESTIMATE (CALCULATED) > 59 mL/min/ (58.99-99999); GLUCOSE 95 mg/dL (70-99); POTASSIUM 4.3 MEQ/L (3.7-5.4); SODIUM 139 MEQ/L (136-147); UREA NITROGEN (BUN) 26 mg/dL (9-23)
[2018-04-13 08:37] VITALS: BP 122/68
[2018-04-13 15:56] VITALS: BP 138/61
[2018-04-13 23:52] VITALS: BP 121/71
[2018-04-14 07:44] VITALS: BP 134/68
[2018-04-14 11:39] VITALS: BP 127/62
[2018-04-14 17:58] LABS: BASOPHIL (%) 0.2 % (0-1); EOSINOPHIL (%) 0.1 % (0-5); HEMATOCRIT 29.6 % (38.0-50.0); HEMOGLOBIN 9.1 G/DL (12.5-16.6); IMMATURE GRANULOCYTE (%) 0.6 % (0.0-0.7); LYMPHOCYTE (%) 5.1 % (15-42); LYMPHOCYTE COUNT 0.5 K/uL (1.0-2.8); MCHC 30.7 G/DL (30.0-36.0); MCV 100.7 FL (86-99); MONOCYTE (%) 5.7 % (3-12); MONOCYTE COUNT 0.6 K/uL (0-0.8); NEUTROPHIL (%) 88.3 % (45-76); NEUTROPHIL COUNT 8.9 K/uL (1.8-6.4); PLATELET COUNT 190 K/uL (156-360); RBC DIS.WIDTH-CV 19.6 % (11.8-14.6); RBC DIS.WIDTH-SD 71.4 % (39-53); RED BLOOD COUNT 2.94 M/uL (4.00-5.50)
[2018-04-14 20:08] VITALS: BP 132/78
[2018-04-14 23:35] VITALS: BP 140/78
[2018-04-15 04:00] VITALS: BP 126/80
[2018-04-15 08:28] VITALS: BP 134/78
[2018-04-15 09:30] LABS: BASOPHIL (%) 0.3 % (0-1); EOSINOPHIL (%) 0.1 % (0-5); HEMATOCRIT 29.8 % (38.0-50.0); HEMOGLOBIN 8.9 G/DL (12.5-16.6); IMMATURE GRANULOCYTE (%) 0.5 % (0.0-0.7); LYMPHOCYTE (%) 6.9 % (15-42); LYMPHOCYTE COUNT 0.7 K/uL (1.0-2.8); MCH 30.5 PG (29.0-34.0); MCHC 29.9 G/DL (30.0-36.0); MCV 102.1 FL (86-99); MONOCYTE (%) 8.3 % (3-12); MONOCYTE COUNT 0.9 K/uL (0-0.8); NEUTROPHIL (%) 83.9 % (45-76); NEUTROPHIL COUNT 8.9 K/uL (1.8-6.4); RBC DIS.WIDTH-CV 19.7 % (11.8-14.6); RBC DIS.WIDTH-SD 73.5 % (39-53); RED BLOOD COUNT 2.92 M/uL (4.00-5.50); WHITE BLOOD COUNT 10.6 K/uL (4.1-10.2)
[2018-04-15 09:55] LABS: CHLORIDE 104 MEQ/L (99-109); CREATININE 1.2 MG/DL (0.6-1.3); GFR ESTIMATE (CALCULATED) > 59 mL/min/ (58.99-99999); GLUCOSE 152 mg/dL (70-99); POTASSIUM 4.9 MEQ/L (3.7-5.4); SODIUM 139 MEQ/L (136-147); UREA NITROGEN (BUN) 31 mg/dL (9-23)
[2018-04-15 10:32] LABS: ANISOCYTOSIS 2+; MACROCYTES 2+; PLAT.SUFFICIENCY ADEQUATE; PLATELET COUNT 167 K/uL (156-360)
[2018-04-15 17:04] VITALS: BP 140/72
[2018-04-15 19:37] VITALS: BP 144/68
[2018-04-15 19:38] VITALS: BP 120/64
[2018-04-15 23:23] VITALS: BP 150/76
[2018-04-16 04:10] VITALS: BP 154/68
[2018-04-16 07:38] VITALS: BP 150/74
[2018-04-16 12:33] VITALS: BP 155/74
[2018-04-16 15:31] VITALS: BP 145/72
[2018-04-16 19:32] VITALS: BP 148/74
[2018-04-17 00:01] VITALS: BP 149/72
[2018-04-17 08:33] VITALS: BP 158/82
[2018-04-17 11:27] VITALS: BP 142/78
[2018-04-17 15:50] VITALS: BP 115/60
[2018-04-17 23:35] VITALS: BP 112/71
[2018-04-18 07:00] LABS: BASOPHIL (%) 0.3 % (0-1); EOSINOPHIL (%) 0.6 % (0-5); HEMOGLOBIN 7.9 G/DL (12.5-16.6); IMMATURE GRANULOCYTE (%) 0.9 % (0.0-0.7); LYMPHOCYTE (%) 14.1 % (15-42); MCH 31.3 PG (29.0-34.0); MCHC 31.6 G/DL (30.0-36.0); MCV 99.2 FL (86-99); MONOCYTE COUNT 0.6 K/uL (0-0.8); NEUTROPHIL (%) 76.1 % (45-76); NEUTROPHIL COUNT 5.4 K/uL (1.8-6.4); PLATELET COUNT 150 K/uL (156-360); RBC DIS.WIDTH-CV 18.6 % (11.8-14.6); RBC DIS.WIDTH-SD 67.8 % (39-53); RED BLOOD COUNT 2.52 M/uL (4.00-5.50)
[2018-04-18 07:35] LABS: CHLORIDE 100 MEQ/L (99-109); CREATININE 1.5 MG/DL (0.6-1.3); GFR ESTIMATE (CALCULATED) 48 mL/min/ (58.99-99999); GLUCOSE 132 mg/dL (70-99); POTASSIUM 4.7 MEQ/L (3.7-5.4); SODIUM 135 MEQ/L (136-147)
[2018-04-18 07:38] LABS: UREA NITROGEN (BUN) 52 mg/dL (9-23)
[2018-04-18 08:17] VITALS: BP 117/68
[2018-04-18 16:30] VITALS: BP 142/68
[2018-04-18 23:41] VITALS: BP 146/66
[2018-04-19 07:17] LABS: BASOPHIL (%) 0.3 % (0-1); EOSINOPHIL (%) 0.8 % (0-5); EOSINOPHIL COUNT 0.1 K/uL (0-0.3); HEMATOCRIT 26.3 % (38.0-50.0); HEMOGLOBIN 8.2 G/DL (12.5-16.6); IMMATURE GRANULOCYTE (%) 0.9 % (0.0-0.7); LYMPHOCYTE (%) 16.5 % (15-42); LYMPHOCYTE COUNT 1.1 K/uL (1.0-2.8); MCH 30.9 PG (29.0-34.0); MCHC 31.2 G/DL (30.0-36.0); MCV 99.2 FL (86-99); MONOCYTE (%) 8.3 % (3-12); MONOCYTE COUNT 0.5 K/uL (0-0.8); NEUTROPHIL (%) 73.2 % (45-76); NEUTROPHIL COUNT 4.7 K/uL (1.8-6.4); PLATELET COUNT 146 K/uL (156-360); RBC DIS.WIDTH-CV 19.1 % (11.8-14.6); RED BLOOD COUNT 2.65 M/uL (4.00-5.50); WHITE BLOOD COUNT 6.5 K/uL (4.1-10.2)
[2018-04-19 07:40] LABS: CHLORIDE 99 MEQ/L (99-109); CREATININE 1.4 MG/DL (0.6-1.3); GFR ESTIMATE (CALCULATED) 52 mL/min/ (58.99-99999); GLUCOSE 160 mg/dL (70-99); POTASSIUM 4.6 MEQ/L (3.7-5.4); SODIUM 133 MEQ/L (136-147); UREA NITROGEN (BUN) 54 mg/dL (9-23)
[2018-04-19 08:04] VITALS: BP 138/64
[2018-04-19 16:20] VITALS: BP 140/62
[2018-04-19] MEDS ORDERED: LOVENOX120 MG/0.8 SC (16:37)
[2018-04-19] MEDS ORDERED: TRAMADOL HCL50 MG PO (16:37)
[2018-04-19] MEDS ORDERED: NOVOLOG 10100 UNITS/ SC (16:37)
[2018-04-19] MEDS ORDERED: DOXYCYCLINE HY100 M3 PO (16:37)
[2018-04-19] MEDS ORDERED: LYRICA75 MG PO (16:37)
[2018-04-19] MEDS ORDERED: ALBUTEROL2.5 MG/0.5 AEROSOL (16:41)
[2018-04-19] MEDS ORDERED: POLYETHYLENE GL17 GM PO (16:42)
[2018-04-19] MEDS ORDERED: AMITIZA24 MICROGR PO (16:42)
== END 2018-04-19 22:55 | DRG 270 ==
LOC: EME 12:32 → 4EAST 16:45 → 3EAST 16:45 → EDOF 16:45 → 3EAST 16:45 → ENRESERV 16:59 → 3EAST 18:20 → ENRESERV 04-05 12:19 → 4EAST 04-05 13:14 → ENRESERV 04-10 10:47 → 3EAST 04-10 14:48
PROVIDERS: Emergency Medicine; Family Medicine; Internal Medicine Nephrology; Physician Assistant Surgical; Surgery
DX: E11.52 Type 2 diabetes mellitus with diabetic peripheral angiopathy with gangrene (principal); I70.262 Atherosclerosis of native arteries of extremities with gangrene, left leg; A41.02 Sepsis due to Methicillin resistant Staphylococcus aureus; R65.20 Severe sepsis without septic shock; L03.116 Cellulitis of left lower limb; N17.0 Acute kidney failure with tubular necrosis; T50.8X5A Adverse effect of diagnostic agents, initial encounter; T36.8X5A Adverse effect of other systemic antibiotics, initial encounter; E87.5 Hyperkalemia; E87.2 Acidosis; E87.6 Hypokalemia; L89.629 Pressure ulcer of left heel, unspecified stage; N50.89 Other specified disorders of the male genital organs; K56.7 Ileus, unspecified; R09.02 Hypoxemia; J98.11 Atelectasis; G93.41 Metabolic encephalopathy; S32.029A Unspecified fracture of second lumbar vertebra, initial encounter for closed fracture; X58.XXXA Exposure to other specified factors, initial encounter; R32 Unspecified urinary incontinence; T82.838A Hemorrhage due to vascular prosthetic devices, implants and grafts, initial encounter; Y84.8 Other medical procedures as the cause of abnormal reaction of the patient, or of later complication, without mention of misadventure at the time of the procedure; I82.622 Acute embolism and thrombosis of deep veins of left upper extremity; R18.8 Other ascites; G47.00 Insomnia, unspecified; N40.1 Benign prostatic hyperplasia with lower urinary tract symptoms; N13.8 Other obstructive and reflux uropathy; E11.621 Type 2 diabetes mellitus with foot ulcer; L97.529 Non-pressure chronic ulcer of other part of left foot with unspecified severity; E87.1 Hypo-osmolality and hyponatremia; E11.65 Type 2 diabetes mellitus with hyperglycemia; D50.0 Iron deficiency anemia secondary to blood loss (chronic); I12.9 Hypertensive chronic kidney disease with stage 1 through stage 4 chronic kidney disease, or unspecified chronic kidney disease; E11.22 Type 2 diabetes mellitus with diabetic chronic kidney disease; N18.2 Chronic kidney disease, stage 2 (mild); E11.42 Type 2 diabetes mellitus with diabetic polyneuropathy; K21.9 Gastro-esophageal reflux disease without esophagitis; E78.5 Hyperlipidemia, unspecified; M10.9 Gout, unspecified; F32.9 Major depressive disorder, single episode, unspecified; N20.0 Calculus of kidney; K59.00 Constipation, unspecified; E66.01 Morbid (severe) obesity due to excess calories; Z87.891 Personal history of nicotine dependence; Z88.5 Allergy status to narcotic agent; Z91.040 Latex allergy status; Z79.82 Long term (current) use of aspirin; Z68.41 Body mass index [BMI] 40.0-44.9, adult; Z91.19 Patient's noncompliance with other medical treatment and regimen; Z79.4 Long term (current) use of insulin
CPT/HCPCS: 36600; 71250; 73630; 73700; 74021; 74022; 74176; 80048; 80053; 80061; 80069; 80202; 81003; 82565; 82803; 82948; 83036; 83605; 83735; 84100; 84484; 85025; 85027; 85520; 85610; 85730; 86704; 86706; 86803; 86850; 86900; 86901; 86920; 87040; 87070; 87075; 87077; 87086; 87147; 87186; 87205; 87340; 87801; 88305; 88307; 88311; 93005; 93926; 93971; 94010; 94640; 94640 76; 94760; 94799; 97530 GO; 97530 GP; 99202; 99281; 99285; A6214; C1725; C1750; C1752; C1760; C1769; C1887; C1894; J0131; J0690; J0881; J1100; J1170; J1644; J1650; J1815; J1885; J1940; J2250; J2270; J2310; J2405; J2543; J2720; J2765; J3010; J3370; J7030; J7040; J7050; J7060; P9016; P9047; S0020; S0039

== ENCOUNTER 2018-05-02 11:56 | Inpatient (IN) | payer OTHER ==
[~2018-05-02] VITALS: Ht 177.8 cm; Wt 121.3 kg
[2018-05-02] VITALS (11 sets, daily range): BP systolic 91–140; BP diastolic 55–99
[~2018-05-02 11:56] MED LIST changes: +ACTOS30 MG PO; +ADVIL200 MG PO; +ALBUTEROL2.5 MG/0.5 AEROSOL; +AMITIZA24 MICROGR PO; +APPLE CIDER VI500 MG PO; +ASPIR 8181 M1 PO; +BENADRYL25 MG PO; +DOXYCYCLINE HY100 M3 PO; +FLOMAX0.4 MG PO; +LASIX40 MG PO; +LOVENOX120 MG/0.8 SC; +LYRICA75 MG PO; +NOVOLOG 10100 UNITS/ SC; +ODOR FREE GARL1 EAC1 PO; +POLYETHYLENE GL17 GM PO; +PROTONIX40 MG PO; +SILVADENE,SSD,T50 GM TP; +TOUJEO SOL300 UNIT/1 SC; +TRADJENTA5 MG PO; +VOLTAREN 1% GE100 GM TP
[2018-05-02 13:04] LABS: INTER. NORMALIZED RATIO 1.1
[2018-05-02 13:05] LABS: BASOPHIL (%) 0.4 % (0-1); EOSINOPHIL (%) 1.9 % (0-5); EOSINOPHIL COUNT 0.1 K/uL (0-0.3); HEMATOCRIT 22.7 % (38.0-50.0); IMMATURE GRANULOCYTE (%) 1.5 % (0.0-0.7); LYMPHOCYTE (%) 18.5 % (15-42); LYMPHOCYTE COUNT 1.2 K/uL (1.0-2.8); MCH 32.9 PG (29.0-34.0); MCHC 30.8 G/DL (30.0-36.0); MCV 106.6 FL (86-99); MONOCYTE (%) 7.5 % (3-12); MONOCYTE COUNT 0.5 K/uL (0-0.8); NEUTROPHIL (%) 70.2 % (45-76); NEUTROPHIL COUNT 4.7 K/uL (1.8-6.4); NRBC (%) 0.9 /100 WBC (0-0); PLATELET COUNT 189 K/uL (156-360); RBC DIS.WIDTH-CV 23.1 % (11.8-14.6); RBC DIS.WIDTH-SD 85.8 % (39-53); RED BLOOD COUNT 2.13 M/uL (4.00-5.50); WHITE BLOOD COUNT 6.7 K/uL (4.1-10.2)
[2018-05-02 13:06] LABS: CHLORIDE 101 mEq/L (99-109); POTASSIUM 4.6 mEq/L (3.7-5.4); SODIUM 136 mEq/L (136-147)
[2018-05-02 13:07] LABS: GLUCOSE 139 mg/dL (70-99)
[2018-05-02 13:11] LABS: CREATININE 1.9 mg/dL (0.6-1.3); GFR ESTIMATE (CALCULATED) 37 mL/min/ (58.99-99999)
[2018-05-02 13:12] LABS: UREA NITROGEN (BUN) 57 mg/dL (9-23)
[2018-05-02] MEDS ORDERED: ENEMA133 M2 PR (14:48)
[2018-05-02] MEDS ORDERED: MILK OF MAGN PO (14:53)
[2018-05-02] MEDS ORDERED: DULCOLAX10 MG PR (14:55)
[2018-05-03] VITALS (7 sets, daily range): BP systolic 92–122; BP diastolic 50–78
[2018-05-03 07:09] LABS: HEMATOCRIT 27.7 % (38.0-50.0); HEMOGLOBIN 8.7 G/DL (12.5-16.6); MCH 32.1 PG (29.0-34.0); MCHC 31.4 G/DL (30.0-36.0); NRBC (%) 0.7 /100 WBC (0-0); PLATELET COUNT 167 K/uL (156-360); RBC DIS.WIDTH-CV 23.5 % (11.8-14.6); RBC DIS.WIDTH-SD 82.8 % (39-53); WHITE BLOOD COUNT 6.8 K/uL (4.1-10.2)
[2018-05-03 07:14] LABS: MCV 102.2 FL (86-99); RED BLOOD COUNT 2.71 M/uL (4.00-5.50)
[2018-05-03 07:28] LABS: CHLORIDE 102 MEQ/L (99-109); CREATININE 1.9 MG/DL (0.6-1.3); GFR ESTIMATE (CALCULATED) 37 mL/min/ (58.99-99999); GLUCOSE 191 mg/dL (70-99); POTASSIUM 4.8 MEQ/L (3.7-5.4); SODIUM 136 MEQ/L (136-147); UREA NITROGEN (BUN) 55 mg/dL (9-23)
[2018-05-04] VITALS (8 sets, daily range): BP systolic 93–155; BP diastolic 55–87
[2018-05-04 06:52] LABS: BASOPHIL (%) 0.3 % (0-1); EOSINOPHIL (%) 1.2 % (0-5); EOSINOPHIL COUNT 0.1 K/uL (0-0.3); HEMATOCRIT 25.9 % (38.0-50.0); HEMOGLOBIN 8.2 G/DL (12.5-16.6); LYMPHOCYTE (%) 16.3 % (15-42); LYMPHOCYTE COUNT 1.1 K/uL (1.0-2.8); MCH 32.5 PG (29.0-34.0); MCHC 31.7 G/DL (30.0-36.0); MCV 102.8 FL (86-99); MONOCYTE (%) 6.7 % (3-12); MONOCYTE COUNT 0.5 K/uL (0-0.8); NEUTROPHIL (%) 74.5 % (45-76); NRBC (%) 0.4 /100 WBC (0-0); PLATELET COUNT 166 K/uL (156-360); RBC DIS.WIDTH-CV 23.3 % (11.8-14.6); RBC DIS.WIDTH-SD 81.9 % (39-53); RED BLOOD COUNT 2.52 M/uL (4.00-5.50); WHITE BLOOD COUNT 6.7 K/uL (4.1-10.2)
[2018-05-04 07:17] LABS: CHLORIDE 102 MEQ/L (99-109); CREATININE 1.8 MG/DL (0.6-1.3); GFR ESTIMATE (CALCULATED) 39 mL/min/ (58.99-99999); GLUCOSE 174 mg/dL (70-99); POTASSIUM 4.2 MEQ/L (3.7-5.4); SODIUM 137 MEQ/L (136-147); UREA NITROGEN (BUN) 52 mg/dL (9-23)
[2018-05-04 16:17] LABS: COMMENTS - BLOOD GASES A+C+; DEVICE NC; O2 FLOW 2 L/MIN; PCO2 44 mm Hg (35-45); PO2 105 mm Hg (80-100); SITE RR; TOTAL RESP RATE 20 resp/min
[2018-05-04 16:18] LABS: BASE EXCESS 2.2 mEq/L (-3 to +3); BICARBONATE 27.3 mEq/L (22-26); CARBOXY HGB 2.1 % (0-5); METHEMOGLOBIN 1.2 % (0-1.5); O2 SATURATION (CALCULATED) 98.2 % (95-99)
[2018-05-05] VITALS (8 sets, daily range): BP systolic 97–112; BP diastolic 53–64
[2018-05-05 05:57] LABS: BASOPHIL (%) 0.4 % (0-1); EOSINOPHIL (%) 2.5 % (0-5); EOSINOPHIL COUNT 0.1 K/uL (0-0.3); HEMATOCRIT 25.5 % (38.0-50.0); HEMOGLOBIN 7.8 G/DL (12.5-16.6); IMMATURE GRANULOCYTE (%) 0.7 % (0.0-0.7); LYMPHOCYTE (%) 18.4 % (15-42); MCH 31.8 PG (29.0-34.0); MCHC 30.6 G/DL (30.0-36.0); MCV 104.1 FL (86-99); MONOCYTE (%) 7.3 % (3-12); MONOCYTE COUNT 0.4 K/uL (0-0.8); NEUTROPHIL (%) 70.7 % (45-76); PLATELET COUNT 135 K/uL (156-360); RBC DIS.WIDTH-CV 22.8 % (11.8-14.6); RBC DIS.WIDTH-SD 84.2 % (39-53); RED BLOOD COUNT 2.45 M/uL (4.00-5.50); WHITE BLOOD COUNT 5.6 K/uL (4.1-10.2)
[2018-05-05 07:32] LABS: ALBUMIN 2.8 G/DL (3.2-4.8); CHLORIDE 104 MEQ/L (99-109); CREATININE 1.6 MG/DL (0.6-1.3); GFR ESTIMATE (CALCULATED) 45 mL/min/ (58.99-99999); GLUCOSE 167 mg/dL (70-99); POTASSIUM 3.9 MEQ/L (3.7-5.4); SODIUM 139 MEQ/L (136-147); UREA NITROGEN (BUN) 46 mg/dL (9-23); URIC ACID 6.8 mg/dL (3.1-9.2)
[2018-05-05 07:35] LABS: PHOSPHORUS 3.6 mg/dL (2.5-4.9)
[2018-05-05 16:51] LABS: C DIFF TOXIN NEGATIVE (NEGATIVE)
[2018-05-06 04:44] VITALS: BP 101/56
[2018-05-06 06:37] LABS: BASOPHIL (%) 0.3 % (0-1); EOSINOPHIL (%) 2.8 % (0-5); EOSINOPHIL COUNT 0.2 K/uL (0-0.3); HEMATOCRIT 28.1 % (38.0-50.0); HEMOGLOBIN 8.5 G/DL (12.5-16.6); IMMATURE GRANULOCYTE (%) 0.8 % (0.0-0.7); LYMPHOCYTE (%) 17.2 % (15-42); MCH 31.7 PG (29.0-34.0); MCHC 30.2 G/DL (30.0-36.0); MCV 104.9 FL (86-99); MONOCYTE (%) 6.8 % (3-12); MONOCYTE COUNT 0.4 K/uL (0-0.8); NEUTROPHIL (%) 72.1 % (45-76); NEUTROPHIL COUNT 4.3 K/uL (1.8-6.4); PLATELET COUNT 145 K/uL (156-360); RBC DIS.WIDTH-CV 22.6 % (11.8-14.6); RBC DIS.WIDTH-SD 84.8 % (39-53); RED BLOOD COUNT 2.68 M/uL (4.00-5.50)
[2018-05-06 06:59] LABS: ALBUMIN 2.9 G/DL (3.2-4.8); CHLORIDE 102 MEQ/L (99-109); CREATININE 1.5 MG/DL (0.6-1.3); GFR ESTIMATE (CALCULATED) 48 mL/min/ (58.99-99999); GLUCOSE 186 mg/dL (70-99); PHOSPHORUS 3.3 mg/dL (2.5-4.9); POTASSIUM 3.7 MEQ/L (3.7-5.4); SODIUM 139 MEQ/L (136-147); UREA NITROGEN (BUN) 43 mg/dL (9-23)
[2018-05-06 08:40] VITALS: BP 112/54
[2018-05-06 11:11] VITALS: BP 159/96
[2018-05-06 18:17] VITALS: BP 104/50
[2018-05-06 20:11] VITALS: BP 114/66
[2018-05-06 23:52] VITALS: BP 119/58
[2018-05-07 06:15] LABS: BASOPHIL (%) 0.3 % (0-1); EOSINOPHIL (%) 3.9 % (0-5); EOSINOPHIL COUNT 0.2 K/uL (0-0.3); HEMATOCRIT 27.1 % (38.0-50.0); HEMOGLOBIN 8.5 G/DL (12.5-16.6); IMMATURE GRANULOCYTE (%) 0.7 % (0.0-0.7); LYMPHOCYTE (%) 14.7 % (15-42); LYMPHOCYTE COUNT 0.9 K/uL (1.0-2.8); MCH 32.6 PG (29.0-34.0); MCHC 31.4 G/DL (30.0-36.0); MCV 103.8 FL (86-99); MONOCYTE (%) 5.9 % (3-12); MONOCYTE COUNT 0.4 K/uL (0-0.8); NEUTROPHIL (%) 74.5 % (45-76); NEUTROPHIL COUNT 4.4 K/uL (1.8-6.4); PLATELET COUNT 145 K/uL (156-360); RBC DIS.WIDTH-CV 21.9 % (11.8-14.6); RBC DIS.WIDTH-SD 80.7 % (39-53); RED BLOOD COUNT 2.61 M/uL (4.00-5.50); WHITE BLOOD COUNT 5.9 K/uL (4.1-10.2)
[2018-05-07 06:39] LABS: ALBUMIN 2.8 G/DL (3.2-4.8); CHLORIDE 103 MEQ/L (99-109); CREATININE 1.3 MG/DL (0.6-1.3); GFR ESTIMATE (CALCULATED) 57 mL/min/ (58.99-99999); GLUCOSE 188 mg/dL (70-99); POTASSIUM 3.7 MEQ/L (3.7-5.4); SODIUM 139 MEQ/L (136-147); UREA NITROGEN (BUN) 40 mg/dL (9-23)
[2018-05-07 07:52] VITALS: BP 112/57
[2018-05-07 12:00] VITALS: BP 121/55
[2018-05-07] MEDS ORDERED: DULOXETINE HCL60 MG PO (13:43)
[2018-05-07] MEDS ORDERED: LOPRESSOR25 MG PO (13:43)
[2018-05-07] MEDS ORDERED: FURO40I IV (13:44)
[2018-05-07] MEDS ORDERED: TRAMADOL HCL50 MG PO (13:45)
[2018-05-07] MEDS ORDERED: LOVENOX40 MG/0.4 SC (13:45)
[2018-05-07] MEDS ORDERED: LASIX40 MG PO (14:23)
[2018-05-07] MEDS ORDERED: FURO40I PO (14:23)
[2018-05-07 15:49] VITALS: BP 120/55
== END 2018-05-07 19:40 | DRG 811 ==
LOC: EME 11:56 → EDOF 14:07 → 3EAST 14:07 → ENRESERV 14:15 → 3EAST 15:36
PROVIDERS: Emergency Medicine; Family Medicine; Internal Medicine; Internal Medicine Nephrology
DX: D62 Acute posthemorrhagic anemia (principal); N17.9 Acute kidney failure, unspecified; N18.3 Chronic kidney disease, stage 3 (moderate); E78.5 Hyperlipidemia, unspecified; I12.9 Hypertensive chronic kidney disease with stage 1 through stage 4 chronic kidney disease, or unspecified chronic kidney disease; E11.22 Type 2 diabetes mellitus with diabetic chronic kidney disease; E11.42 Type 2 diabetes mellitus with diabetic polyneuropathy; E11.21 Type 2 diabetes mellitus with diabetic nephropathy; Z87.891 Personal history of nicotine dependence; Z89.612 Acquired absence of left leg above knee; Z91.11 Patient's noncompliance with dietary regimen; Z91.14 Patient's other noncompliance with medication regimen; E66.9 Obesity, unspecified; Z68.37 Body mass index [BMI] 37.0-37.9, adult; K21.9 Gastro-esophageal reflux disease without esophagitis; Z79.4 Long term (current) use of insulin; D63.1 Anemia in chronic kidney disease; G93.41 Metabolic encephalopathy; L97.919 Non-pressure chronic ulcer of unspecified part of right lower leg with unspecified severity; E11.622 Type 2 diabetes mellitus with other skin ulcer
CPT/HCPCS: 36600; 71045; 80048; 80048 91; 80069; 82948; 84443; 84550; 85025; 85025 91; 85027; 85610; 86850; 86900; 86901; 86920; 87493; 94799; 99281; 99285; A6214; J0881; J1815; J1940; P9016